=== PATIENT | female | born 1980 | race African-American/Black ===

== ENCOUNTER 2020-05-16 11:23 | Emergency (ER) | payer OTHER ==
[~2020-05-16] VITALS: Ht 162.6 cm; Wt 71.8 kg
[2020-05-16] MEDS ORDERED: FLUORESCEIN SODIUM 1 MG STRIP ONE (11:52)
[2020-05-16] MEDS ORDERED: FLUORESCEIN SODIUM 1 MG STRIP OU ONE (12:00)
[2020-05-16] MEDS ORDERED: PROPARACAINE HCL 0.5% 15 ML OPHTHALMIC SOLUTION OU ONE (12:00)
[2020-05-16] MEDS ORDERED: ERYTHROMYCIN 0.5% 3.5 GM TUBE OPHTHALMIC OINTMENT OU ONE (12:15)
[2020-05-16 13:08] VITALS: BP 133/72
== END 2020-05-16 13:08 | disposition home or self-care (01) ==
LOC: EMS 11:33
DX: S05.01XA Injury of conjunctiva and corneal abrasion without foreign body, right eye, initial encounter (principal); S05.02XA Injury of conjunctiva and corneal abrasion without foreign body, left eye, initial encounter; R03.0 Elevated blood-pressure reading, without diagnosis of hypertension; Z88.2 Allergy status to sulfonamides; Z88.1 Allergy status to other antibiotic agents; X58.XXXA Exposure to other specified factors, initial encounter; Y93.89 Activity, other specified; Y92.89 Other specified places as the place of occurrence of the external cause; Y99.8 Other external cause status